=== PATIENT | male | born 1950 | race Caucasian/White ===

== ENCOUNTER 2016-10-29 20:48 | Inpatient (IN) | payer MEDICARE, BC ==
[~2016-10-29] VITALS: Ht 175.3 cm; Wt 94.6 kg
[2016-10-29] MEDS ORDERED: NORVASC10 M1 PO (21:22)
[2016-10-29] MEDS ORDERED: LIPITOR80 MG PO (21:23)
[2016-10-29] MEDS ORDERED: BETAPACE120 MG PO (21:24)
[2016-10-29] MEDS ORDERED: ASPIRIN81 MG PO (21:25)
[2016-10-29] MEDS ORDERED: ELIQUIS5 MG PO (22:02)
[2016-10-29] MEDS ORDERED: TRICOR145 MG PO (22:03)
[2016-10-29] MEDS ORDERED: GLUCOPHAGE XR500 MG PO (22:04)
[2016-10-29] MEDS ORDERED: NITROSTAT0.4 MG SL (22:04)
[2016-10-31] MEDS ORDERED: PRINIVIL5 MG PO (10:19)
[2016-10-31] MEDS ORDERED: KLOR-CON M2020 MEQ PO (10:19)
[2016-10-31] MEDS ORDERED: NORVASC5 MG PO (10:20)
[2016-10-31] MEDS ORDERED: LASIX20 MG PO (10:20)
[2016-10-31] MEDS ORDERED: TOPROL XL25 MG PO (10:20)
[2016-10-31] MEDS ORDERED: DOXYCYCLINE HY100 MG PO (10:21)
[2016-10-31] MEDS ORDERED: AUGMENTIN 875-1 EACH PO (10:22)
== END 2016-10-31 11:36 | disposition short-term general hospital (02) | DRG 291 ==
LOC: IP 20:48
PROVIDERS: ADMIT Family Medicine
PROC: 3E0F7GC Introduction of Other Therapeutic Substance into Respiratory Tract, Via Natural or Artificial Opening (ICD-10-PCS; principal; 2016-10-29)
DX: I11.0 Hypertensive heart disease with heart failure (principal); J18.9 Pneumonia, unspecified organism; I50.9 Heart failure, unspecified; E11.9 Type 2 diabetes mellitus without complications; E78.5 Hyperlipidemia, unspecified
CPT/HCPCS: A9150; A9270; J0456; J0696; J1940

== ENCOUNTER → 2016-11-04 | Outpatient (CLI) | payer BC, MEDICARE ==
[~2016-11-04] MED LIST: ASPIRIN81 MG PO; AUGMENTIN 875-1 EACH PO; BETAPACE120 MG PO; DOXYCYCLINE HY100 MG PO; ELIQUIS5 MG PO; GLUCOPHAGE XR500 MG PO; KLOR-CON M2020 MEQ PO; LASIX20 MG PO; LIPITOR80 MG PO; NITROSTAT0.4 MG SL; NORVASC10 M1 PO; NORVASC5 MG PO; PRINIVIL5 MG PO; TOPROL XL25 MG PO; TRICOR145 MG PO
== END | disposition short-term general hospital (02) ==
LOC: CLCARD 08:38
DX: I11.0 Hypertensive heart disease with heart failure (principal); I50.9 Heart failure, unspecified; J18.9 Pneumonia, unspecified organism; I25.10 Atherosclerotic heart disease of native coronary artery without angina pectoris; I48.0 Paroxysmal atrial fibrillation; E78.5 Hyperlipidemia, unspecified; E11.9 Type 2 diabetes mellitus without complications; I34.0 Nonrheumatic mitral (valve) insufficiency